=== PATIENT | female | born 1950 | race Caucasian/White ===

== ENCOUNTER 2016-12-29 13:23 | Emergency (ER) | payer BC ==
[~2016-12-29] VITALS: Ht 162.6 cm; Wt 72.1 kg
[~2016-12-29 13:23] MED LIST: GLC/500 PO; HYZ/50125 PO; SIMV40TA2 PO; TRAZ50TA35 PO
[2016-12-29 13:36] VITALS: TEMP 36.8; Ht 162.6 cm; Wt 72.1 kg
[2016-12-29] MEDS ORDERED: METF-383 PO (13:47)
[2016-12-29] MEDS ORDERED: OXYCODONE/ACETAMINOPHEN 5-325 TAB PO STA (14:17)
--- NOTE | 2016-12-29 15:07 | DIAGNOSTIC IMAGING REPORT ---
RIGHT SHOULDER MIN 2 VIEWS ROUTINE CLINICAL HISTORY: Right shoulder pain following fall COMPARISON: Chest CT June 26, 2014. FINDINGS: Alignment of the right shoulder is anatomic. There is moderate osteoarthritis of the right glenohumeral joint. No acute fracture is identified. IMPRESSION: 1. No acute fracture or dislocation of the right shoulder. 2. Moderate osteoarthritis of the right glenohumeral joint. Electronically signed by: Foster Sevilla M.D. 12/29/2016 3:06 PM Dictated Date/Time: 12/29/2016 3:04 PM
--- NOTE | 2016-12-29 15:22 | DIAGNOSTIC IMAGING REPORT ---
PA CHEST WITH RIGHT-SIDED RIB SERIES CLINICAL HISTORY: Fall. Right-sided chest wall pain. FINDINGS: A PA chest radiograph with 4 additional views may right-sided rib series is compared to study dated 05/25/2014. The cardiomediastinal silhouette is unremarkable. There is atherosclerotic calcification of the thoracic aorta. The lungs and pleural spaces are clear. No pneumothorax is seen. The skeletal structures are osteopenic. There is no radiographic evidence of right-sided rib fracture on the rib series. The remainder of the bony thorax is grossly intact. IMPRESSION: 1. No active disease in the chest. 2. There is no radiographic evidence of right-sided rib fracture as clinically queried. Electronically signed by: Raymundo Red M.D. 12/29/2016 3:21 PM Dictated Date/Time: 12/29/2016 3:19 PM
[2016-12-29] MEDS ORDERED: OXYC-57 PO (16:03)
--- NOTE | 2016-12-29 16:04 | EMERGENCY ROOM VISIT NOTE ---
ED Visit Note First contact with patient: 13:48 CHIEF COMPLAINT: Fall this morning, right shoulder and right rib pain HISTORY OF PRESENT ILLNESS: Patient is a 66-year-old white female, right-hand- dominant, who presents to the emergency department accompanied by a clean since for evaluation of right rib and right shoulder pain. Patient reports that she lost her balance on her steps and fell this morning. Injury occurred 6 hours ago. She reports that she was at the top of her flight of about 6 or 7 steps when she lost her balance and fell. She did strike the back of her head on the wall, but did not lose consciousness. She landed primarily on her back, and right shoulder. She notes pain in the anterior lateral right ribs, underneath her breast. She states that her rib pain is worse with movement and coughing and deep breathing. She also notes some pain in the top and front of her right shoulder. She rates her discomfort a 10/10 presently. She took Tylenol today. She denies any headache, lightheadedness or dizziness. No nausea or vomiting. She denies any cough, shortness of breath or hemoptysis. No neck or low back pain. No numbness, tingling or weakness into the extremities. She denies any other injuries related to the fall. She states that she lost her balance, and denies being dizzy, lightheaded or experiencing any palpitations which caused the fall. REVIEW OF SYSTEMS: Review of systems as per HPI. All other systems reviewed were negative. 10 systems reviewed. PMH: Electronic medical records are reviewed and summarized as above/below. See Problem List. SOCIAL HISTORY: Patient lives at home with her . 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 Nonsmoker.. PHYSICAL EXAM: Vital Signs: Reviewed Nurse's notes. GENERAL: Patient is an uncomfortable-appearing 66-year-old white female who is awake and alert and in no acute distress. Neck: The neck is supple and there is no pain to palpation over the posterior cervical spine and no obvious step-offs or deformities. There is no JVD or tracheal deviation. Chest: There are no signs of deformities, contusions or abrasions to the chest wall. There is no obvious crepitus or paradoxical chest rise. Heart: Regular rate, and regular rhythm. There is a normal S1 and S2 with no murmurs, clicks, or gallops appreciated. Lungs: Breath sounds equal and clear to auscultation without wheezes, rales, or rhonchi heard. Abdomen: Soft, completely nontender, nondistended, with good bowel sounds. There is no sign of trauma such as contusions, abrasions or penetrations. There are no palpable pulsatile masses or hepatosplenomegaly. There is no guarding, rigidity, or rebound noted. Extremities: Examination of the right shoulder does not demonstrate any obvious deformity. She has some tenderness over the right trapezius muscle, also over the acromioclavicular joint, the anterior shoulder over the biceps tendon and laterally over the rotator cuff insertion. Passive internal and external rotation are full. She has full shoulder range of motion, but occasionally it causes a pulling discomfort in her right ribs. No pain at the elbow and range of motion is full. The right upper extremity is neurovascularly intact. There are easily palpable peripheral pulses. Back: The entire thoracic, lumbar, and sacral spine were palpated. No discomfort over the thoracic spine and lumbar spine. There are no obvious step- offs or deformities noted. There are no obvious signs of trauma such as contusions abrasions penetrations noted to the back. ED course: The patient was seen and evaluated as above. She was medicated with 2 Percocet tablets orally. Chest with right ribs and right shoulder x-rays were obtained below. There is no evidence for pneumothorax, right-sided rib fractures or right-sided shoulder fracture. Mild arthritic changes were noted. Conservative care measures were discussed. Differential diagnosis includes pneumothorax, pulmonary contusion, rib fracture, rib contusion, chest wall injury, shoulder dislocation, humerus fracture, AC separation, among others. RIGHT SHOULDER MIN 2 VIEWS ROUTINE CLINICAL HISTORY: Right shoulder pain following fall COMPARISON: Chest CT June 26, 2014. FINDINGS: Alignment of the right shoulder is anatomic. There is moderate osteoarthritis of the right glenohumeral joint. No acute fracture is identified. IMPRESSION: 1. No acute fracture or dislocation of the right shoulder. 2. Moderate osteoarthritis of the right glenohumeral joint. PA CHEST WITH RIGHT-SIDED RIB SERIES CLINICAL HISTORY: Fall. Right-sided chest wall pain. FINDINGS: A PA chest radiograph with 4 additional views may right-sided rib series is compared to study dated 05/25/2014. The cardiomediastinal silhouette is unremarkable. There is atherosclerotic calcification of the thoracic aorta. The lungs and pleural spaces are clear. No pneumothorax is seen. The skeletal structures are osteopenic. There is no radiographic evidence of right-sided rib fracture on the rib series. The remainder of the bony thorax is grossly intact. IMPRESSION: 1. No active disease in the chest. 2. There is no radiographic evidence of right-sided rib fracture as clinically queried. Problem List Medical Problems: (1) Asthma, Unspecified Status: Chronic (2) Diab Sheeba Wo Compl, Type Ii Or Unspec Type, Not Uncntrld Status: Chronic (3) Diverticulosis Colon (W/O Ment Of Hemorrhage) Status: Chronic (4) Fractured coccyx Status: Resolved (5) Gastroenteritis Status: Resolved (6) Glaucoma Nos Status: Chronic (7) Gout Nos Status: Chronic (8) Hypertension Nos Status: Chronic (9) Int Hemorrhoid W/O Compl Status: Chronic (10) Pneumonia, Organism Nos Status: Resolved Current/Historical Medications Scheduled Hctz/Losartan (Hyzaar 12.5MG/50MG), 1 TAB PO DAILY Metformin Hcl (Glucophage), 850 MG PO BID Simvastatin (Zocor), 40 MG PO QPM Scheduled PRN Trazodone Hcl (Trazodone), 50 MG PO HS PRN for Sleep Allergies Coded Allergies: Indomethacin (Unverified Allergy, Severe, TACHYCARDIA AND SHE ALMOST PASSED OUT., 12/29/16) Vital Signs Date Time Temp Pulse Resp B/P Pulse Ox O2 Delivery O2 Flow Rate FiO2 12/29/16 13:36 36.8 84 16 137/70 97 Room Air Medications Administered Medications (Trade) Dose Ordered Sig/Dayanara Route Start Time Stop Time Status Last Admin Dose Admin Oxycodone/ Acetaminophen (Percocet 5-325mg Tab) 2 tab NOW STAT PO 12/29/16 14:17 12/29/16 14:19 DC 12/29/16 14:36 2 TAB Departure Information Impression Primary Impression: Rib injury Additional Impression: Shoulder injury Prescriptions Oxycodone/Acetaminophen 5MG/325MG (PERCOCET 5MG/325MG) Tab 1-2 TABS PO Q4 Y for Pain, #15 TAB For Initial Treatment Prov: Loyda Martini PA 12/29/16 Referrals Dong Brink M.D. (PCP) Patient Instructions [facility] Additional Instructions DO NOT drive, drink alcohol, operate machinery, or perform dangerous activities today. You were given medications in the ER that can affect your ability to safely function or operate a vehicle. Percocet 5/325 mg :Take 1-2 pills every four hours for breakthrough pain. Avoid alcohol, operating machinery or dangerous equipment, working on ladders or roofs, DRIVING, or situations where being under the influence may be dangerous. It is recommended to use an [id number] stool softener such as Colace, 100mg twice daily while taking this medication to avoid constipation. Ibuprofen(Motrin, Advil) may be used for fever or pain. Use 600mg every six hours as needed. Take with food. Avoid using more than 2400mg in a 24 hour period. Do not use 2400mg per day for more than three consecutive days without physician direction. Prolonged inappropriate use can lead to stomach upset or ulcers. This medication can be taken if you need to drive, work, or perform activities which may be dangerous when taking narcotic pain medication. (AND/OR) Acetaminophen(Tylenol) may be used for fever or pain. Use 1000mg every six hours as needed. Avoid using more than 3000mg in a 24 hour period. This medication can be taken if you need to drive, work, or perform activities which may be dangerous when taking narcotic pain medication. Ice compresses for 20 minutes at a time four times daily for 2-3 days. Do deep breathing and coughing exercises as instructed. Rest and elevate your injury. Limit activities until ribs heal. Continue current medications. Return to the ER immediately for any numbness, tingling, severe pain, extreme swelling in the extremity or as needed. Follow-up family doctor or orthopedics if your symptoms are not improving in 5- 7 days. Problem Qualifiers
[2016-12-29 16:20] VITALS: BP 120/77; PULSE 78; O2SAT 96
== END 2016-12-29 16:20 | disposition home or self-care (01) ==
LOC: C.EDB 13:26 → C.EDD 16:20
DX: S29.9XXA Unspecified injury of thorax, initial encounter (principal); S49.91XA Unspecified injury of right shoulder and upper arm, initial encounter; W10.9XXA Fall (on) (from) unspecified stairs and steps, initial encounter; J45.909 Unspecified asthma, uncomplicated; K57.30 Diverticulosis of large intestine without perforation or abscess without bleeding; E11.9 Type 2 diabetes mellitus without complications; H40.9 Unspecified glaucoma; M10.9 Gout, unspecified; I10 Essential (primary) hypertension

== ENCOUNTER → 2017-07-24 | Outpatient (CLI) | payer BC ==
[~2017-07-24] MED LIST changes: -GLC/500 PO; +METF-383 PO
--- NOTE | 2017-07-24 12:57 | MAMMOGRAPHY REPORT ---
BILATERAL DIGITAL SCREENING MAMMOGRAM TOMOSYNTHESIS WITH CAD: 07/24/2017 CLINICAL HISTORY: Routine screening. Patient has no complaints. TECHNIQUE: Breast tomosynthesis in addition to standard 2D mammography was performed. Current study was also evaluated with a Computer Aided Detection (CAD) system. COMPARISON: Comparison is made to exams dated: 05/14/2016 mammogram, 05/10/2015 mammogram, 05/09/2014 m ammogram, 05/03/2013 mammogram, 04/30/2012 mammogram, and 04/24/2011 mammogram - [facility]. BREAST COMPOSITION: There are scattered areas of fibroglandular density in both breasts. FINDINGS: No suspicious masses, calcifications, or areas of architectural distortion are noted in ei ther breast. There has been no significant interval change compared to prior exams. IMPRESSION: ACR BI-RADS CATEGORY 1: NEGATIVE There is no mammographic evidence of malignancy. A 1 year screening mammogram is recommended. The pa tient will receive written notification of the results. Approximately 10% of breast cancers are not detected with mammography. A negative mammographic report should not delay biopsy if a clinically suggestive mass is present. Yamila Sanon M.D. ah/:07/24/2017 12:34:56 Assembly Supervisor: Nel PRATT(Tanner)(Cm)([place]), [facility] letter sent: Normal 1/2 BI-RADS Code: ACR BI-RADS Category 1: Negative
== END | disposition home or self-care (01) ==
LOC: C.MAMM 11:44
PROVIDERS: ATTEND Family Medicine
DX: Z12.31 Encounter for screening mammogram for malignant neoplasm of breast (principal)